=== PATIENT | male | born 1930 | race Caucasian/White ===

== ENCOUNTER → 2019-07-20 12:29 | Outpatient (CLI) | payer MEDICARE, OTHER ==
[2015-12-05 09:20] VITALS: BMI 27.7
[~2019-07-20 12:29] MED LIST: AGGRENOX 200/251 CAP PO; ARICEPT5 MG PO; ASPIRIN325 MG PO; BAYER ASPIRIN325 MG PO; CALCIUM; CALCIUM 600+D T1 TA1 PO; CENTRUM SILVER1 TA2 PO; CIPRO500 MG PO; CLEOCIN HCL300 MG PO; FERROUS SULFAT325 MG PO; FLAGYL500 MG PO; FLUDROCORTISON0.1 MG PO; GLUCOPHAGE1000 MG PO; GLUCOPHAGE500 MG; GLUCOPHAGE500 MG PO; HYDROCODON-ACE1 EAC7 PO; HYDROCODONE-APA1 TAB PO; K-DUR20 MEQ PO; KLONOPIN0.5 MG PO; LOPRESSOR25 MG PO; MILK OF MAGNESI30 ML OR; NORCO 5/325 TAB1 TA1 PO; OMNICEF300 MG PO; OYSCO 500+D TAB1 TAB PO; PLAVIX75 MG PO; PRILOSEC20 MG PO; PROVENTIL HFA6.7 GM INH; SYNTHROID112 MCG PO; SYNTHROID88 MCG PO; VITAMIN D5000 UNIT PO; VYTORIN 10-20 M1 TAB PO; ZETIA10 MG PO; ZOCOR20 MG PO
== END | disposition home or self-care (01) ==
LOC: D.CT 12:29
PROVIDERS: ATTEND Specialist
DX: R09.89 Other specified symptoms and signs involving the circulatory and respiratory systems (principal)

== ENCOUNTER → 2020-05-16 12:55 | Outpatient (CLI) | payer MEDICARE, OTHER ==
[2015-12-05 09:20] VITALS: BMI 27.7
== END | disposition home or self-care (01) ==
LOC: D.CT 12:55
PROVIDERS: ATTEND Family Medicine
DX: I73.9 Peripheral vascular disease, unspecified (principal)

== ENCOUNTER → 2020-06-21 11:05 | Outpatient (CLI) | payer MEDICARE, OTHER ==
[2015-12-05 09:20] VITALS: BMI 27.7
== END | disposition home or self-care (01) ==
LOC: D.MRI 11:05
PROVIDERS: ATTEND Orthopaedic Surgery
DX: M46.96 Unspecified inflammatory spondylopathy, lumbar region (principal)

== ENCOUNTER → 2021-04-26 17:12 | Outpatient (CLI) | payer MEDICARE, OTHER ==
[2020-10-04 14:25] VITALS: BMI 23.8
[~2021-04-26 17:12] MED LIST changes: +BRILINTA90 MG PO
[2021-04-26 18:19] LABS: BASOPHILS 1.3 % (0-2); EOSINOPHILS 2.5 % (0-7); HEMATOCRIT 44.8 % (42.0-54.0); LYMPHOCYTES 20.2 % (15-50); MCH 31.7 pg (26.0-34.0); MCHC 33.6 g/dL (31.0-37.0); MCV 94.4 fL (80.0-100.0); MEAN PLATELET VOLUME 9.3 fL (7.4-10.4); MONOCYTES 11.9 % (2-11); NEUTROPHILS 64.1 % (40-80); PLATELET COUNT 199 10x3/uL (130-400); RBC 4.75 10x6/uL (4.20-6.10); WBC 6.5 10x3/uL (4.8-10.8)
[2021-04-26 18:46] LABS: ALBUMIN 3.9 g/dL (3.4-5.0); ANION GAP 11.7 mmol/L (8-16); BILIRUBIN - TOTAL 0.7 mg/dL (0.2-1.3); CALCIUM 8.5 mg/dL (8.5-10.1); CARBON DIOXIDE 30.2 mmol/L (21.0-32.0); CREATININE - SERUM 1.6 mg/dL (0.6-1.3); POTASSIUM - SERUM 3.9 mmol/L (3.5-5.1); PROTEIN - SERUM 6.5 g/dL (6.4-8.2); T4 THYROXIN - FREE 1.02 ng/dL (0.76-1.46); THYROID STIMULATING HORMONE 4.24 uIU/mL (0.36-3.74)
== END | disposition home or self-care (01) ==
LOC: D.LABREF 17:12
PROVIDERS: ATTEND Pediatrics
DX: D64.9 Anemia, unspecified (principal); E03.9 Hypothyroidism, unspecified; E86.0 Dehydration